=== PATIENT | female | born 1990 | race Caucasian/White ===

== ENCOUNTER 2021-08-16 23:27 | Day surgery (SDC) | payer OTHER ==
[2021-08-17] MEDS ORDERED: hydrALAZINE 20 MG/ML VIAL SLOW IVP PRN (00:56)
[2021-08-17 01:27] LABS: Bilirubin Neg (Negative); Blood, Urine Negative (Negative); Clarity Clear (Clear); Glucose, Urine (Dipstick) Normal (Negative); Ketone, Urine 5 mg/dL (Negative); Leukocyte Negative (Negative); Nitrite Negative (Negative); Protein, Urine (Dipstick) Negative (Neg-Trace); Specific Gravity, Urine 1.005 (1.002-1.036); Urobilinogen Normal mg/dL (Less than 2)
[2021-08-17 01:53] LABS: Bacteria/HPF Rare-Few HPF (None Seen); RBC/HPF 0-3 HPF (0-3); Squamous Epithelial 0-3 HPF (0-3); WBC/HPF 0-3 HPF (0-3)
== END 2021-08-17 03:01 | disposition home or self-care (01) ==
LOC: CSHLD/OP 23:27
PROVIDERS: ATTEND Family Medicine
DX: O99.891 Other specified diseases and conditions complicating pregnancy (principal); R10.9 Unspecified abdominal pain; O98.812 Other maternal infectious and parasitic diseases complicating pregnancy, second trimester; B37.3 Candidiasis of vulva and vagina; Z3A.27 27 weeks gestation of pregnancy; Z88.2 Allergy status to sulfonamides; Z88.6 Allergy status to analgesic agent
CPT/HCPCS: 81001; 87480; 87510; 87660; 99284

== ENCOUNTER 2021-08-23 09:16 | Emergency (ER) | payer OTHER ==
[2021-08-23 20:01] LABS: SARS-CoV-2 PCR by NAA DETECTED (NotDetected)
== END 2021-08-23 10:19 | disposition home or self-care (01) ==
LOC: CSHERS 09:16
DX: U07.1 COVID-19 (principal); F17.210 Nicotine dependence, cigarettes, uncomplicated
CPT/HCPCS: 99283; U0003; U0005

== ENCOUNTER 2021-11-03 14:47 | Outpatient (CLI) | payer OTHER ==
[2021-11-04 16:11] LABS: SARS-CoV-2 PCR by NAA Not Detected (NotDetected)
== END 2021-11-03 14:48 | disposition home or self-care (01) ==
LOC: CSHLAB 14:47
PROVIDERS: ATTEND Family Medicine
DX: Z20.822 Contact with and (suspected) exposure to COVID-19 (principal)
CPT/HCPCS: U0003; U0005

== ENCOUNTER 2021-11-08 10:38 | Inpatient (IN) | payer OTHER ==
[2021-11-08] MEDS ORDERED: Lidocaine 1% (PF) 30 ML VIAL SC PRN (10:59)
[2021-11-08] MEDS ORDERED: HYDROcodone/Acetaminophen 5/325 mg Tablet PO PRN (10:59)
[2021-11-08] MEDS ORDERED: Methylergonovine 0.2 MG/ML VIAL IM PRN (10:59)
[2021-11-08] MEDS ORDERED: Misoprostol 200 MCG TAB PR PRN (10:59)
[2021-11-08] MEDS ORDERED: NS w/ Oxytocin 30 units 500 ML IV SCH ×2 (10:59)
[2021-11-08] MEDS ORDERED: Diphenoxylate HCl/Atropine Tablet PO PRN (10:59)
[2021-11-08] MEDS ORDERED: Penicillin G Potassium 5 MILL.UNITS in Sodium Chloride 0.9% 100 ML IVPB SCH (10:59)
[2021-11-08] MEDS ORDERED: Acetaminophen 500 MG TAB PO PRN (10:59)
[2021-11-08] MEDS ORDERED: Carboprost 250 MCG/ML AMP IM PRN (10:59)
[2021-11-08] MEDS ORDERED: Promethazine HCl 25 MG/ML VIAL IM PRN ×2 (10:59→21:14)
[2021-11-08] MEDS ORDERED: Ondansetron PF 4 MG/2 ML Vial IVP PRN ×2 (10:59→21:14)
[2021-11-08] MEDS ORDERED: hydrALAZINE 20 MG/ML VIAL SLOW IVP PRN (10:59)
[2021-11-08] MEDS: Lactated Ringer's 1,000 ML IV SCH (11:10)
[2021-11-08 11:44] LABS: Hemoglobin 12.3 g/dL (12.0-15.5); Mean Corpuscular HGB CONC 34.6 g/dL (32.0-36.0); Mean Corpuscular Hemoglobin 31.5 pg (27.0-33.0); Mean Platelet Volume 11.6 fl (7.4-10.4); Platelet Count 280 10x3/uL (150-450); Red Blood Cell (RBC) Count 3.91 10x6/uL (3.90-5.03); White Blood Cell (WBC) Count 12.4 10x3/uL (3.5-10.5)
[2021-11-08 11:46] VITALS: BMI 35.3
[2021-11-08 12:22] LABS: Hep B Surf Ag Non-Reactive S/CO (NonReactive)
[2021-11-08 12:23] LABS: Syphilis Antibody Nonreactive (Nonreactive); Syphilis Antibody Index 0.24 S/CO (<1.00 Non-Reactive)
[2021-11-08 12:33] LABS: HBSAg Index 0.13 S/CO (0-0.99)
[2021-11-08] MEDS ORDERED: Penicillin G 2.5 MILL.units 2.5 MILL.UNITS in Premix Bag 1 BAG IVPB SCH (15:00)
[2021-11-08] MEDS: Butorphanol Tartrate 1 MG/ML VIAL SLOW IVP PRN ×2 (16:11→19:08)
[2021-11-08] MEDS ORDERED: Fentanyl 2 mcg/Bup 0.1% Cadd 100 ML ONE (20:19)
[2021-11-08] MEDS ORDERED: Moisturizing Cream (Eucerin) 113 GM JAR TOP PRN (21:14)
[2021-11-08] MEDS ORDERED: ePHEDrine Sulfate 50 MG/10 ML VIAL SLOW IVP PRN (21:14)
[2021-11-08] MEDS ORDERED: Naloxone HCl 0.4 mg/ml Vial IVP PRN ×2 (21:14)
[2021-11-08] MEDS ORDERED: diphenhydrAMINE 50 MG/ML VIAL IVP PRN (21:14)
[2021-11-08] MEDS ORDERED: Acetaminophen 325 MG TAB PO PRN (21:14)
[2021-11-08] MEDS ORDERED: Lactated Ringer's 500 ML IV PRN (21:14)
[2021-11-08] MEDS ORDERED: Fentanyl 2 mcg/Bupivacaine 0.1% Cassette 100 ML EPIDURAL SCH (21:15)
[2021-11-08] MEDS ORDERED: Communication Order-Pharmacy FS SCH (21:15)
[2021-11-08] MEDS ORDERED: Misoprostol 200 MCG TAB ONE (23:51)
[2021-11-08] MEDS ORDERED: Carboprost 250 MCG/ML AMP ONE (23:52)
[2021-11-08] MEDS ORDERED: Methylergonovine 0.2 MG/ML VIAL ONE (23:52)
[2021-11-09] MEDS ORDERED: Ondansetron PF 4 MG/2 ML Vial IVP PRN (02:25)
[2021-11-09] MEDS ORDERED: Benzocaine-Menthol 82.5 ML CAN TOP PRN (02:25)
[2021-11-09] MEDS ORDERED: Boostrix 0.5 ML (Tdap) VIAL IM ONE (02:25)
[2021-11-09] MEDS ORDERED: Bisacodyl 10 MG SUPP PR PRN (02:25)
[2021-11-09] MEDS ORDERED: hydrALAZINE 20 MG/ML VIAL SLOW IVP PRN (02:25)
[2021-11-09] MEDS ORDERED: diphenhydrAMINE 25 MG CAP PO PRN (02:25)
[2021-11-09] MEDS ORDERED: Milk Of Magnesia 30 ML UDCUP PO PRN (02:25)
[2021-11-09] MEDS ORDERED: HYDROcodone/Acetaminophen 5/325 mg Tablet PO PRN (02:25)
[2021-11-09] MEDS ORDERED: Lanolin Ointment 7 GM TUBE TOP PRN ×2 (02:25→02:42)
[2021-11-09] MEDS ORDERED: Promethazine HCl 25 MG/ML VIAL IM PRN (02:25)
[2021-11-09] MEDS: HYDROcodone/Acetaminophen 5/325 mg Tablet PO PRN ×3 (02:53→18:52)
[2021-11-09] MEDS ORDERED: NS w/ Oxytocin 30 units 500 ML IV SCH (03:00)
[2021-11-09] MEDS: Misoprostol 100 MCG TAB PO SCH (03:51)
[2021-11-09] MEDS: Lactated Ringer's 1,000 ML IV SCH (03:52)
[2021-11-09] MEDS: Docusate 100 MG CAP PO SCH (08:13)
[2021-11-09] MEDS: Prenatal Vitamin 1 TAB PO SCH (08:13)
[2021-11-09] MEDS: Ferrous Sulfate 325 MG TAB PO SCH ×2 (08:13→09:56)
[2021-11-10 07:34] VITALS: TEMP 98.6
[2021-11-10] MEDS: Prenatal Vitamin 1 TAB PO SCH (08:26)
[2021-11-10] MEDS: HYDROcodone/Acetaminophen 5/325 mg Tablet PO PRN (08:26)
[2021-11-10] MEDS: Ferrous Sulfate 325 MG TAB PO SCH (08:26)
[2021-11-10] MEDS: Docusate 100 MG CAP PO SCH (08:26)
[2021-11-10 11:36] VITALS: BP 110/55
== END 2021-11-10 16:10 | disposition home or self-care (01) | DRG 807 ==
LOC: CSHLD 10:38 → CSHPP 11-09 03:48
PROVIDERS: ADMIT Family Medicine; ATTEND Family Medicine
PROC: 10E0XZZ Delivery of Products of Conception, External Approach (ICD-10-PCS; principal; 2021-11-09)
PROC: 0KQM0ZZ Repair Perineum Muscle, Open Approach (ICD-10-PCS; 2021-11-09)
PROC: 10907ZC Drainage of Amniotic Fluid, Therapeutic from Products of Conception, Via Natural or Artificial Opening (ICD-10-PCS; 2021-11-09)
PROC: 3E033VJ Introduction of Other Hormone into Peripheral Vein, Percutaneous Approach (ICD-10-PCS; 2021-11-09)
DX: O70.1 Second degree perineal laceration during delivery (principal); Z37.0 Single live birth; Z3A.39 39 weeks gestation of pregnancy; Z20.822 Contact with and (suspected) exposure to COVID-19
CPT/HCPCS: 36415; 51702; 85027; 86780; 86850; 86900; 86901; 87340; J0595; J2001; J2210; J2405; J2590; J7120

== ENCOUNTER 2025-04-08 08:18 | Emergency (ER) | payer OTHER, SELFPAY ==
[2025-04-08] MEDS ORDERED: Lidocaine Viscous Sol 2% 15 ml UD Cup ONE (09:02)
[2025-04-08] MEDS ORDERED: Milk Of Magnesia 30 ML UDCUP ONE (09:02)
[2025-04-08 09:09] LABS: #Basophils 0.04 10x3/uL (0.0-0.2); #Eosinophils 0.09 10x3/uL (0.0-0.5); #Monocytes 0.49 10x3/uL (0.0-1.1); #Neutrophils 4.52 10x3/uL (1.5-8.4); %Basophils 0.5 % (0.0-2.0); %Eosinophils 1.2 % (0.0-6.0); %Lymphocytes 32.9 % (18.0-47.0); %Monocytes 6.4 % (0.0-10.0); %Neutrophils 58.9 % (40.0-75.0); Hematocrit 40.3 % (34.9-44.5); Hemoglobin 13.6 g/dL (12.0-15.5); Mean Corpuscular Hemoglobin 31.9 pg (27.0-33.0); Mean Corpuscular Volume 94.4 fL (81.6-98.3); Platelet Count 297 10x3/uL (150-450); Red Blood Cell (RBC) Count 4.27 10x6/uL (3.90-5.03); White Blood Cell (WBC) Count 7.68 10x3/uL (3.5-10.5)
[2025-04-08 09:21] LABS: Troponin I 0.010 ng/mL (< 0.028)
[2025-04-08 09:28] LABS: ALT (SGPT) 9 U/L (Less than 34); AST (SGOT) 13 U/L (11-34); Albumin 4.5 g/dL (3.1-4.5); Alkaline Phosphatase 51 U/L (40-110); Anion Gap 13 mmol/L (10-20); BUN (Urea Nitrogen) 12 mg/dL (7.0-18.7); Bilirubin, Total 0.7 mg/dL (0.3-1.2); Calc. Creatinine Clearance 0 mL/min (70-130); Calcium 9.5 mg/dL (7.8-10.44); Carbon Dioxide 25 mmol/L (22-29); Chloride 106 mmol/L (98-107); Globulin 2.8 g/dL (2.4-3.5); Glucose 76 mg/dL (70-105); Potassium 4.8 mmol/L (3.5-5.1); Sodium 139 mmol/L (136-145)
== END 2025-04-08 10:32 | disposition home or self-care (01) ==
LOC: CSHERS 08:18
DX: R07.89 Other chest pain (principal); F17.210 Nicotine dependence, cigarettes, uncomplicated
CPT/HCPCS: 36415; 71045; 80053; 84484; 85025; 85379; 93005

== ENCOUNTER 2025-06-21 09:41 | Emergency (ER) | payer SELFPAY ==
[2025-06-21 10:14] LABS: Glucose, Urine (Dipstick) Normal (Negative); Leukocyte Negative (Negative); Protein, Urine (Dipstick) Negative (Neg-Trace); Specific Gravity, Urine 1.005 (1.005-1.030)
[2025-06-21 10:30] LABS: #Basophils 0.03 10x3/uL (0.0-0.2); #Eosinophils 0.04 10x3/uL (0.0-0.5); #Monocytes 0.68 10x3/uL (0.0-1.1); #Neutrophils 6.22 10x3/uL (1.5-8.4); %Basophils 0.3 % (0.0-2.0); %Eosinophils 0.4 % (0.0-6.0); %Lymphocytes 25.2 % (18.0-47.0); %Monocytes 7.3 % (0.0-10.0); %Neutrophils 66.5 % (40.0-75.0); Hematocrit 39.3 % (34.9-44.5); Hemoglobin 13.3 g/dL (12.0-15.5); Mean Corpuscular Hemoglobin 32.1 pg (27.0-33.0); Mean Corpuscular Volume 94.9 fL (81.6-98.3); Platelet Count 344 10x3/uL (150-450); Red Blood Cell (RBC) Count 4.14 10x6/uL (3.90-5.03); White Blood Cell (WBC) Count 9.36 10x3/uL (3.5-10.5)
[2025-06-21 10:32] LABS: CAUTI Indications for Culture Pregnancy; RBC/HPF 0-3 HPF (0-3); WBC/HPF 0-3 HPF (0-3)
[2025-06-21 10:33] LABS: Bacteria/HPF 1+ HPF (None Seen)
[2025-06-21 10:34] LABS: Urine Culture Reflex Yes Yes
[2025-06-21 10:56] LABS: ALT (SGPT) 11 U/L (Less than 34); AST (SGOT) 14 U/L (11-34); Albumin 4.3 g/dL (3.1-4.5); Alkaline Phosphatase 44 U/L (40-110); Anion Gap 11 mmol/L (10-20); BUN (Urea Nitrogen) 9 mg/dL (7.0-18.7); Bilirubin, Total 0.4 mg/dL (0.3-1.2); Calc. Creatinine Clearance 0 mL/min (70-130); Calcium 9.1 mg/dL (7.8-10.44); Carbon Dioxide 24 mmol/L (22-29); Chloride 105 mmol/L (98-107); Globulin 2.9 g/dL (2.4-3.5); Glucose 81 mg/dL (70-105); Potassium 3.7 mmol/L (3.5-5.1); Sodium 136 mmol/L (136-145)
[2025-06-21] MEDS ORDERED: Acetaminophen 500 MG TAB ONE (12:09)
== END 2025-06-21 12:20 | disposition home or self-care (01) ==
LOC: CSHERS 09:41
DX: O34.81 Maternal care for other abnormalities of pelvic organs, first trimester (principal); N83.202 Unspecified ovarian cyst, left side; O23.41 Unspecified infection of urinary tract in pregnancy, first trimester; N39.0 Urinary tract infection, site not specified; O99.331 Smoking (tobacco) complicating pregnancy, first trimester; F17.210 Nicotine dependence, cigarettes, uncomplicated; F17.290 Nicotine dependence, other tobacco product, uncomplicated; Z3A.01 Less than 8 weeks gestation of pregnancy
CPT/HCPCS: 36415; 76856; 80053; 81001; 84702; 85025; 87086